=== PATIENT | male | born 1950 | race Caucasian/White ===

== ENCOUNTER → 2016-08-10 | Outpatient (CLI) | payer BC ==
[~2016-08-10] MED LIST: ESCI1TAB6 PO; IBUP-103 PO; LISI-461 PO; LXP/20 PO; VNTHFA/IN INH; albuterol inhaler INH
--- NOTE | 2016-08-10 11:45 | DIAGNOSTIC IMAGING REPORT ---
THYROID ULTRASOUND HISTORY: Nodule TRACH IAL NODULE COMPARISON: None. FINDINGS: Right lobe: Maximum dimension 3.8 cm. Uniform echogenicity Left lobe: Maximum dimension 4.2 cm. Uniform echogenicity Isthmus: No nodules. IMPRESSION: Normal thyroid ultrasound. Electronically signed by: Khurram Leggett M.D. 08/10/2016 11:43 AM Dictated Date/Time: 08/10/2016 11:38 AM
== END | disposition home or self-care (01) ==
LOC: C.ULTRBC 11:09
PROVIDERS: ATTEND Family Medicine
DX: J98.8 Other specified respiratory disorders (principal)

== ENCOUNTER → 2016-08-29 | Outpatient (CLI) | payer BC ==
[2016-08-29 11:03] LABS: BASO % 0.3 %; BASO ABS # 0.02 K/uL (0-0.2); COMPLETE YES; EOS % 0.4 %; HEMATOCRIT 42.8 % (42-52); IG% 0.1 %; LYMPH % 29.3 %; MEAN CELL VOLUME 82.8 fL (80-100); MEAN PLATELET VOLUME 9.4 fL (7.4-10.4); MONO % 9.3 %; NEUT % 60.6 %; PLATELET COUNT 311 K/uL (130-400); RED BLOOD COUNT 5.17 M/uL (4.7-6.1); WHITE BLOOD COUNT 7.17 K/uL (4.8-10.8)
[2016-08-29 11:17] LABS: INR 1.1 (0.9-1.1); PARTIAL THROMBOPLASTIN RATIO 1.3; PROTHROMBIN TIME (PATIENT) 11.6 SECONDS (9.0-12.0)
[2016-08-29 11:31] LABS: ALT/SGPT 22 U/L (12-78); AST/SGOT 21 U/L (15-37); BLOOD UREA NITROGEN 26 mg/dl (7-18); BUN/CREATININE RATIO 26.7 (10-20); CALCIUM 9.2 mg/dl (8.5-10.1); CARBON DIOXIDE 28 mmol/L (21-32); CHLORIDE 99 mmol/L (98-107); CREATININE 0.99 mg/dl (0.60-1.40); GLUCOSE 104 mg/dl (70-99); POTASSIUM 3.9 mmol/L (3.5-5.1); SODIUM 132 mmol/L (136-145)
[2016-08-29 11:43] LABS: ALB/GLOB RATIO 0.9 (0.9-2); ALKALINE PHOSPHATASE 80 U/L (45-117); IMMUNOGLOBULN M 84.2 mg/dL (40-230); TOTAL IRON BINDING CAPACITY 277 mcg/dl (250-450)
--- NOTE | 2016-09-03 09:35 | CODING QUERY MEDICAL NECESSITY ---
SUPPORTING DIAGNOSIS NEEDED Vegas RAVI, A supporting diagnosis is required for the test/procedure performed on this patient in order for us to be reimbursed by the patient's insurance. Please provide a supporting diagnosis for the following test/procedure listed below next to the test name along with your signature. *If there is no additional diagnosis for this patient that would support the following test/procedure please document that below next to the test/procedure. Test(s)/Procedure(s) that require a supporting diagnosis: * ([id number]) IMMUNOGLOBULIN E DIAGNOSIS: DATE OF SERVICE: 08/29/16 Provider Signature: Date: Thank you Jonh Pena [facility] [place] Information Management Once completed, please kindly fax back to [phone] For questions please call [phone]
== END | disposition home or self-care (01) ==
LOC: C.LAB 10:01
PROVIDERS: ATTEND Internal Medicine Pulmonary Disease
DX: J98.8 Other specified respiratory disorders (principal); J44.9 Chronic obstructive pulmonary disease, unspecified; R73.03 Prediabetes; Z79.899 Other long term (current) drug therapy; I10 Essential (primary) hypertension; E78.5 Hyperlipidemia, unspecified; R53.83 Other fatigue; F17.200 Nicotine dependence, unspecified, uncomplicated; E22.2 Syndrome of inappropriate secretion of antidiuretic hormone

== ENCOUNTER → 2016-09-03 | Outpatient (CLI) | payer BC ==
--- NOTE | 2016-09-03 15:53 | DIAGNOSTIC IMAGING REPORT ---
PET/CT HISTORY: MALIGNANT NEOPLASM TECHNIQUE: PET/CT was performed from the base of the skull through the pelvis following the intravenous administration of 12.2 mCi of F18-FDG. Non-contrast CT imaging was performed over the same range without breath-hold for attenuation correction of PET images and anatomic correlation, but not for primary interpretation as it is not of standard diagnostic quality. CT DOSE: COMPARISON: Outside hospital chest CT 08/03/2016. Abdomen and pelvis CT 11/28/2006. FINDINGS: HEAD AND NECK: There is no FDG-avid disease or significant lymphadenopathy in the imaged portions of the head and the neck. Symmetric FDG uptake within the brain. Diffuse mild FDG uptake within the soft palate and salivary glands is likely physiologic. CHEST: There is no FDG-avid disease in the chest. There is no axillary, mediastinal, or hilar lymphadenopathy. There is no pleural or pericardial effusion. There is no air-space disease. Linear density within the upper trachea likely represent mucous. Otherwise, the central airways are patent. Stable 4 mm nodule within the superior segment of the right lower lobe on image 124. This does not demonstrate abnormal FDG uptake but is likely below the threshold for PET imaging. ABDOMEN/PELVIS: Below the diaphragm, tracer is distributed physiologically in the gastrointestinal and genitourinary tracts. There is no significant lymphadenopathy and no FDG-avid disease. MUSCULOSKELETAL: There is no FDG-avid or destructive bone lesion. IMPRESSION: 1. No FDG avid disease. 2. A stable 4 mm nodule within the right lower lobe. This does not demonstrate abnormal FDG uptake but is likely below the threshold for PET imaging. Continued chest CT follow up is recommended to ensure stability. Electronically signed by: Tomi Bourgeois M.D. 09/03/2016 4:17 PM Dictated Date/Time: 09/03/2016 11:49 AM
== END ==
LOC: C.PET 07:22
PROVIDERS: ATTEND Internal Medicine Pulmonary Disease
DX: C80.1 Malignant (primary) neoplasm, unspecified (principal)

== ENCOUNTER 2016-09-11 07:22 | Day surgery (SDC) | payer BC ==
--- NOTE | 2016-09-10 19:30 | History and Physical ---
History & Physical Date Sep 10, 2016. Chief Complaint Abnormal CT scan with tracheal mucosa/mucous plug versus mass History of Present Illness The patient is a 65 year old male with complaints of abnormal CT scan 65-year-old male who initially presented to the [facility] for follow-up on abnormal CT scan. PET scan was obtained notably within normal limits but there continue to be a 4 millimeter nodule which is being follow-up. The CT scan did show an abnormal tracheal mucus plug verses lesion. And as the patient is high risk for primary lung carcinoma he is here for bronchoscopy and evaluation of the trachea and main stem bronchi bilaterally. Past Medical/Surgical History Medical Problems: (1) Benign hypertension (2) thyroid issues Additional History Hepatic Disease: No Endocrine Disorder: No Kidney Disease: No Hypertension: Yes Heart Disease: No Bleeding Tendencies: No Infectious Diseases: No Allergies Coded Allergies: Cheese (Verified Allergy, Unknown, MIGRAINES, 12/23/15) [place] (Verified Adverse Reaction, Severe, MIGRAINES, 12/23/15) NUTS (Verified Adverse Reaction, Severe, MIGRAINES, 12/23/15) Tomato (Verified Adverse Reaction, Severe, MIGRAINES, 12/23/15) Delta Oil (Verified Adverse Reaction, Unknown, MIGRAINES, 12/23/15) Uncoded Allergies: LEGUMES (Adverse Reaction, Unknown, MIGRIANES, 12/23/15) Home Medications Scheduled Escitalopram Oxalate (Lexapro), 20 MG PO DAILY Lisinopril (Zestril), 20 MG PO BID Physical Examination Skin: warm/dry, no rash Eyes: normal inspection, EOMI, sclerae normal ENT: normal ENT inspection, pharynx normal Head: normocephalic, atraumatic Neck: supple, no adenopathy, trachea midline Respiratory/Chest: lungs clear, normal breath sounds, no respiratory distress Cardiovascular: regular rate, rhythm, no edema, no murmur Abdomen / GI: normal bowel sounds, non tender Back: normal inspection Extremities: normal inspection, normal range of motion Neurologic/Psych: no motor/sensory deficits, alert, normal reflexes, oriented x [address] scan with tracheal mucus plugging versus mass ASA Classification: ASA Class II Plan of Treatment Bronchoscopy with conscious sedation and bronchial alveolar lavage for evaluation
[~2016-09-11] VITALS: Ht 167.6 cm; Wt 50.0 kg
[2016-09-11] VITALS (15 sets, daily range): BP systolic 159–196; BP diastolic 85–120; PULSE 46–63; TEMP 36.4–37.1; O2SAT 93–100; Ht 167.6 cm; Wt 50.0 kg
[~2016-09-11 07:22] MED LIST changes: -IBUP-103 PO; -LISI-461 PO; -LXP/20 PO; -VNTHFA/IN INH; -albuterol inhaler INH
[2016-09-11] MEDS ORDERED: LIDOCAINE HCL 2% LOCAL 50ML VIAL INFIL ONE (07:23)
[2016-09-11] MEDS ORDERED: LIDOCAINE 4% W/AFRIN NASAL SOLN 4ML ONE (07:23)
[2016-09-11] MEDS ORDERED: FENTANYL CITRATE INJ 50 MCG/1 ML 2 ML VIAL IV ONE (07:23)
[2016-09-11] MEDS ORDERED: MIDAZOLAM HCL 5 MG/ML 1 ML VIAL IV ONE (07:23)
--- NOTE | 2016-09-11 08:41 | Procedure Note ---
Pre-Mod Sedation Assessment General Date of Moderate Sedation: Sep 11, 2016. Review Cardiovascular: regular rate, rhythm, no edema, no gallop, no JVD, no murmur, normal peripheral pulses Abdomen: normal bowel sounds, non tender, soft, no organomegaly, no pulsatile mass, normal rectal exam, occult blood negative Lungs: chest non-tender, lungs clear, normal breath sounds, no respiratory distress, no accessory muscle use Airway Class: II Pre-Sedation Airway Assessment Oral Cavity: Dentures, WNL Short Thick Neck: No Hx of Sleep Apnea: No Smoking Status: Current Every Day Smoker Mallampati Classification: Class IV Procedure Planning Contraindications-for Mod Sed: None Yes Notes The planned sedation has been discussed with the patient and consent obtained. I have identified the patient, determined the appropriateness of sedation and have assessed the patient immediately prior to the procedure. All medicine(s) and interventions are by my order.
--- NOTE | 2016-09-11 08:41 | History & Physical Bridge Note ---
H&P Re-Evaluation Bridge Note: I have examined the patient, reviewed the History & Physical and in the interval since the performance of the History & Physical I have noted the following changes of clinical significance: No changes noted
[2016-09-11] MEDS ORDERED: albuterol inhaler INH (08:42)
[2016-09-11] MEDS ORDERED: D5W AND NSS 1,000 ML IV SCH (08:45)
[2016-09-11] MEDS ORDERED: MIDAZOLAM HCL 5 MG/ML 1 ML VIAL IV SCH (09:40)
[2016-09-11] MEDS ORDERED: FENTANYL CITRATE INJ 50 MCG/1 ML 2 ML VIAL IV SCH (09:40)
[2016-09-11] MEDS ORDERED: NURSING VERBAL MED ORDER ONE (09:45)
--- NOTE | 2016-09-11 09:50 | Procedure Note ---
Post-Moderate Sedation Plan General Date of Moderate Sedation Sep 11, 2016. Vital Signs: Vital Signs Past 12 Hours Date Time Temp Pulse Resp B/P Pulse Ox O2 Delivery O2 Flow Rate FiO2 09/11/16 09:40 54 21 180/114 94 Mask 6.0 09/11/16 09:35 63 22 167/110 94 Mask 6.0 09/11/16 09:30 59 22 168/120 93 Mask 6.0 09/11/16 09:25 51 22 166/97 95 Mask 09/11/16 09:20 51 22 160/98 99 Mask 09/11/16 09:10 47 21 183/105 100 Room Air Mask 09/11/16 09:08 52 20 160/95 98 Room Air Mask 09/11/16 09:08 36.4 51 20 183/104 98 Room Air 09/11/16 08:44 Room Air 09/11/16 08:17 36.4 51 20 192/95 98 Room Air 183/104 Review - Discharge Plan Post Moderate Sedation Plan: On clinical assessment, the patient appears to have tolerated the conscious sedation without complications. Patient is recovering as anticipated. Patient will continue to be monitored by nursing and may be discharged when conscious sedation discharge criteria are met.
--- NOTE | 2016-09-11 09:55 | Bronchoscopy Procedure Note ---
Bronchoscopy Procedure Note Procedure: Bronchoscopy, bronchoalveolar lavage the right middle lobe, conscious sedation Consent: Obtained to the patient placed in the chart Preprocedural diagnosis: Tracheal mass Postprocedural diagnosis: Diffuse mucous plugs Start time: Zero 925 In time: Zero 933 Analgesia: 2% lidocaine: Via nebulizer 4% gel lidocaine: Via right naris 2% atomized lidocaine: Via atomizer 2% liquid lidocaine: Via bronchoscopy Sedation: Versed IV: 2 mg Fentanyl IV: 50 g Procedure: The Olympus video bronchoscope was used for this procedure initially passed out through the oropharynx retroflex off the soft palate and then passed out through the right naris. Posterior naris: Bilateral erythema with notable edema of the nasal turbinates Posterior oropharynx: Mild erythema with cobblestoning Right naris/periglottic glottis: Anatomically within normal limits Glottis: Anatomically within normal limits Vocal cords: Proper abduction and abduction, anatomically within normal limits Subglottis/trachea/Porsche: Diffuse mucous plugs easily cleared, anatomically within normal limits Right bronchial tree: Right mainstem bronchus: Anatomically within normal limits Right upper lobe: Anatomically within normal limits Bronchus intermedius: Anatomically within normal limits Right middle lobe: Anatomically within normal limits Right lower lobe: Anatomically within normal limits Findings: Mild and easily removed diffuse mucous plugs in all lobes Left bronchial tree: Left mainstem bronchus: Anatomically within normal limits Left upper lobe: Anatomically within normal limits Lingula: Anatomically within normal limits Left lower lobe: Anatomically within normal limits Findings: Diffuse mucous plugs greatest in the left upper lobe lingula easily cleared Bronchial lavage: 80 cc lavage performed of the right middle lobe with 40 cc were returned Complications: None Follow-up: Patient will return to [facility] monitored in then discharged
--- NOTE | 2016-09-11 09:57 | Discharge Instructions ---
Discharge Instructions Date of Service Sep 11, 2016. Admission Reason for Admission: Tracheal Nodule Discharge Discharge Diagnosis / Problem: diffuse mucous secretions of the aortic globally and notable rhinitis Discharge Goals Goal(s): Diagnostic testing Activity Recommendations Activity Limitations: resume your previous activity . Instructions / Follow-Up Instructions / Follow-Up Follow-up with provider Zhen [place] of the pulmonary clinic Current Hospital Diet Patient's current hospital diet: Discharge Diet Recommended Diet: Regular Diet Pending Studies Studies pending at discharge: yes List of pending studies: Microbiologic and bilateral analysis of the bronchial washing of the right middle lobe Medical Emergencies . Who to Call and When: Medical Emergencies: If at any time you feel your situation is an emergency, please call 911 immediately. . Non-Emergent Contact Non-Emergency issues call your: Certified Nurses' Aide Call Non-Emergent contact if: temperature is above 101.5 . . "Provider Documentation" section prepared by Angel Luis Ly. VTE Core Measure Inpt VTE Proph given/why not?: Treatment not indicated
[2016-10-05 20:54] LABS: HERPES SIMPLEX CULT SOURCE OTHER-RIGHT MIDDLE L; HERPES SIMPLEX VIRUS CULT NOT ISOLATED (NOT ISOLATED)
[2017-02-26] MEDS ORDERED: IBUP-103 PO (08:44)
== END 2016-09-11 12:15 | disposition home or self-care (01) ==
LOC: C.ACU 07:22
PROVIDERS: ATTEND Internal Medicine Critical Care Medicine
DX: J39.8 Other specified diseases of upper respiratory tract (principal); J98.09 Other diseases of bronchus, not elsewhere classified; I10 Essential (primary) hypertension; Z91.018 Allergy to other foods

== ENCOUNTER → 2016-09-13 | Outpatient (CLI) | payer BC ==
[~2016-09-13] MED LIST changes: +IBUP-103 PO; +LISI-461 PO; +LXP/20 PO; +VNTHFA/IN INH; +albuterol inhaler INH
[2016-09-13 14:18] LABS: ESTIMATED AVERAGE GLUCOSE 123 mg/dl; HA1C FLAG Normal (Normal)
[2016-09-13 15:06] LABS: URINE APPEARANCE CLEAR (CLEAR); URINE BILIRUBIN NEG (NEG); URINE COLOR YELLOW; URINE EPITHELIAL CELL AUTO 0-5 /lpf (0-5); URINE NITRITE NEG (NEG); URINE SPECIFIC GRAVITY 1.011 (1.000-1.030); UROBILINOGEN NEG (NEG)
[2016-09-13 15:16] LABS: MANUAL MICROSCOPIC REQUIRED? NO; REVIEW REQ? NO
--- NOTE | 2016-09-18 11:21 | CODING QUERY MEDICAL NECESSITY ---
SUPPORTING DIAGNOSIS NEEDED A supporting diagnosis is required for the test/procedure performed on this patient in order for us to be reimbursed by the patient's insurance. Please provide a supporting diagnosis for the following test/procedure listed below next to the test name along with your signature. *If there is no additional diagnosis for this patient that would support the following test/procedure please document that below next to the test/procedure. Test(s)/Procedure(s) that require a supporting diagnosis: * GLYCATED HEMOGLOBIN DIAGNOSIS: * DOS: 09/13/16 Provider Signature: Date: Thank you [facility] Information Management Once completed, please kindly fax back to [phone] For questions please call [phone]
== END | disposition home or self-care (01) ==
LOC: C.LAB 12:20
PROVIDERS: ATTEND Family Medicine
DX: Z12.5 Encounter for screening for malignant neoplasm of prostate (principal); R53.83 Other fatigue; R73.03 Prediabetes

== ENCOUNTER → 2016-11-05 | Outpatient (CLI) | payer BC | END | disposition home or self-care (01) | LOC: C.LAB 10:52 | PROVIDERS: ATTEND Family Medicine | DX: R31.29 Other microscopic hematuria (principal) ==

== ENCOUNTER → 2017-01-06 | Outpatient (CLI) | payer BC ==
--- NOTE | 2017-01-07 05:28 | PAP/PSG TECHNICIAN REPORT ---
[facility] [employer] Box Rental Clerk Polysomnogram Report Study name: None Report date: 01/07/2017 Study date: 01/06/2017 Referring Physician: Rena Stiles PA-C Name: WILLIAN GILLIAM Interpreting Physician: Dar Augustine M.D. Date of : 1950 Safe Dep[employer] Box Rental Clerk: Parish Guthrie RPSGT. Sex: Male Age: 66 StudyType: PSG PAP Weight: 122 lbs Height: 66 years, Height 5' 7" BMI: 19.11 Medications: ESCITALOPRAM OXALATE 20 MG, LISINOPRIL 10 MG, VENTOLIN HFA 108 (90) BASE Patient History PATIENT HAD A HOME SLEEP STUDY IN AUGUST AND WAS POSITIVE FOR MO[place]STO WITH AN AHI OF 32.9/HR. HE WAS GIVEN A AUTO-CPAP BUT HAS BEEN STRUGGLING TO TOLERATE IT. HE HAS CHANGED DIFFERENT MASKS BUT STILL HAS TROUBLE WITH A MASK LEAK AND FELT THE CPAP ISNT HELPING HIM. HE IS TODAY FOR BIPAP TITRATION. ESS = 3 Parameters Monitored NPSG: E1-M2, E2-M1, Fp1-M2, Fp2-M1, F3-M2, F4-M2, F4-M1, C3-M2, C4-M2, C4-M1, O1-M2, O2-M2, O2-M1, T3-M2, T4-M1, P3-M2, P4-M1, CHIN1, CHIN2, HR, EKG, Legs, PFLOW, SNOR, FLOW, CFLOW, Tidal Volume, THOR, ABDO, SpO2, PLTH, CPRESS, ETCO2 Wave, ETCO2, pH Sleep Architecture Sleep Stages Time at Lights Off 9:34:17 PM STAGES Time (min.) TST (%) Time at Lights On 4:58:47 AM Wake 138.5 -- Total Recording Time (TRT) 445.00 min. N1 17.0 6 Total Sleep Period (TSP) 346.5 min. N2 165.0 54 Total Sleep Time (TST) 306.0min. N3 44.5 15 Awake Time 139.0 min. REM 79.5 26 Wake after Sleep Onset 47.5 min. Sleep Efficiency (SE) 69 % Sleep Onset Latency (ANNAMARIA) 91.0 min. Number of Stage 1 Shifts None Awakenings 15 Stage Changes 56 Number of REM periods 3 REM 79.5 26 REM Latency 170.0 min. NREM 226.5 74 Body Position Analysis Supine Right Left Side Prone Vertical Total Sleep Time (min.) 9.5 38.5 263.1 301.57 0.0 0.0 Total Sleep Time (%) 1% 13% 86% 99 0% N/A% Total Sleep Time REM (min.) 0.0 35.5 44.0 None 0.0 0.0 Total Sleep Time NREM (min.) 4.4 3.0 219.1 None 0.0 0.0 Intermittent Wake (min.) 5.0 19.1 114.3 None 0.0 0.0 Total Sleep Period (%) 2% None None None None None Arousals Myoclonus (PLM) * Events Count Index Events Count Index Spontaneous 21 4 Events Awake (PLMW) 82 35.5 Respiratory 14 2.5 Events Asleep w/ Arousal (PLMA) 4 0.8 PLM 4 1 Events Asleep w/o Arousal (PLMS) 97 19.0 Snoring 13 3 Total Asleep 101 19.8 Total 49 10 Total 183 25 Respiratory Analysis * CA OA MA CH H RERA Total Count 9 1 4 0 13 8 27 Index 1.8 0.2 0.8 0 2.5 2 6.9 Mean Duration 29.9 12.9 51.7 0.00 32.5 19.3 30.4 Longest Duration 44.3 12.9 63.2 0.00 63.2 24.7 63.5 Respiratory Event Summary Total Supine ~Supine Right Left Prone REM NREM Apneas Count 14 2 12 8 4 N/A 7 7 Index 2.7 27 2 12.5 0.9 N/A 5 2 Hypopneas (4% Desat) Count 13 1 12 6 6 N/A 6 7 Index 2.5 13.6 2 9.4 1.4 N/A 4.5 1.9 Apneas & All Hypopneas Count 27 3 24 14 10 N/A 13 14 Index 5.3 41 5 22 2 N/A 9.8 3.7 Respiratory Events (Retail Shift Supervisor+All Hyp+RERA) Count 27 3 32 18 14 N/A 13 14 Index 6.9 41 6 28.1 3.2 N/A 12.8 4.8 Respiratory Related Arousal Count 14 3 12 6 6 N/A 6 7 Index 2.5 14 2 9 1 N/A 5 2 Snoring Analysis Supine Right Left Prone REM NREM Total Snore duration 8.5 min Snores count 3 126 286 N/A 125 290 415 Snore mean duration 1.2 Sec Snores index 41 196 65 N/A 94.3 76.8 81.4 TST with snoring (%) 2.8% Desaturation Event Summary: Minimum %SpO2 Event Count Mean/Min/Max Duration(sec.) Desaturation Index % Time In Bed > 90 25 48.9 / 10.0 / 87.0 3.6 98.8 86 - 90 1 50.7 / 50.7 / 50.7 12.1 1.2 81 - 85 0 N/A 0.0 0.0 76 - 80 0 N/A 0.0 0.0 71 - 75 0 N/A 0.0 0.0 66 - 70 0 N/A 0.0 0.0 61 - 65 0 N/A 0.0 0.0 56 - 60 0 N/A 0.0 0.0 51 - 55 0 N/A 0.0 0.0 < 50 0 N/A 0.0 0.0 Total REM NREM Awake <50% 0.0 min. 0.0 min. 0.0 min. 0.0 min. 51 - 60% 0.0 min. 0.0 min. 0.0 min. 0.0 min. 61 - 70% 0.0 min. 0.0 min. 0.0 min. 0.0 min. 71 - 80% 0.0 min. 0.0 min. 0.0 min. 0.0 min. 81 - 90% 5.1 min. 4.0 min. 0.4 min. 0.7 min. 91 - 100% 417.5 min. 75.5 min. 226.1 min. 115.9 min. Average 94 94 93 97 Minimum SpO2 82 86 90 82 Desaturation Event Index 3.5 9.8 3.2 0.4 # Desat. Events below 89% 4 4 N/A N/A Time(%) with Saturation below 89% 0.3 0.3 0.0 0.0 Time(min.) with Saturation below 89% 1.4 1.2 0.0 0.2 Time (mins) REM (mins) NREM (mins) % of TST SpO2 Below 90% 10 7 N3 0.7 SpO2 Below 88% 5 0 0 0 Heart Rate Analysis Min (bpm) Max (bpm) Average (bpm) Awake 49 127 60 NREM 50 72 56 REM 51 71 57 Overall 50 72 56 Supplemental O2 Values Minimum O2 level: None Value Start Time End Time [employer] Rental Clerk Comments Mr. Gilliam slept in the right, left and supine positions. No cardiac arrhythmia noted. Leg movements noted. No bruxism noted. PAP initiated at an IPAP of +8 CMH2O and an EPAP of +4 CMH2O up-titrated to an optimal level of: IPAP +17 CMH2O, EPAP + 7 CMH20 with a rate of 16 BPM, which nearly eliminated all respiratory events and snoring. A Resmed Mirage Quattro full face size large mask was used during titration Mr. Gilliam awoke to use the restroom 2 times during the night. Mr. Gilliam stated I slept as well as I do when I am in my own bed. I added a rate of 14 around 1:58 am due to continued central and mix apnea events. I later increased the rate to 16. FINAL PRESSURE SETTIN/7 with a rate of 16. The patient brought in his own mask and I had him put it on himself. While the patient was wearing the mask, I tested the leak and it was running in the 80's. I asked him if this is how he always puts it on and if this is how it always feels and he said yes. I offered a different mask for him to wear that would have a tolerable leak. Though, with the Quattro full face the leak was slightly high due to the patient's thick facial hair. He said he's willing to shave it off if the mask will work better. The final report will be interpreted and signed by a sleep physician. The completed physician report will then be placed in the patient medical record. Therapy Event: Therapy (cm H20) 01/18/03/20 12 146 29/11 31/12 Total Time at Pressure (min.) 109.5 15.1 9.8 15.5 127.3 5.1 11.0 151.2 TST at Pressure (min.) 18.5 14.6 9.8 15.5 121.3 5.1 11.0 110.2 # Periods 1 1 1 1 1 1 1 1 Sleep Onset (min.) 91.0 0.0 0.0 0.0 0.0 0.0 0.0 0.0 REM Onset (min.) N/A N/A N/A N/A 111.2 0.0 0.0 0.0 Sleep Efficiency % 16 96 100 100 95 100 100 72 Wakefulness (%) 83.1 3.3 0.0 0.0 4.7 0.0 0.0 27.1 Wakefulness (min.) 91.0 0.5 0.0 0.0 6.0 0.0 0.0 41.0 NREM 1 (%) 2.7 0.0 0.0 0.0 5.9 0.0 0.0 4.3 NREM 1 (min.) 3.0 0.0 0.0 0.0 7.5 0.0 0.0 6.5 NREM 2 (%) 14.1 96.7 100.0 90.3 68.1 0.0 0.0 16.2 NREM 2 (min.) 15.5 14.6 9.8 14.0 86.7 0.0 0.0 24.5 NREM 3 (%) 0.0 0.0 0.0 9.7 8.6 0.0 0.0 21.2 NREM 3 (min.) 0.0 0.0 0.0 1.5 11.0 0.0 0.0 32.0 REM (%) 0.0 0.0 0.0 0.0 12.7 100.0 100.0 31.2 REM (min.) 0.0 0.0 0.0 0.0 16.2 5.1 11.0 47.2 # Arousals 5 4 3 5 18 0 4 10 Arousal Index 16.3 16.4 18.3 19.4 8.9 0.0 21.7 5.4 # Snore 71 87 27 45 94 37 30 24 Snore Index 230.8 357.5 165.0 174.7 46.5 432.9 163.1 13.1 AHI 0.0 4.1 12.2 15.5 8.9 11.7 0.0 0.5 AHI Supine N/A N/A N/A N/A 50.2 N/A N/A 29.4 AHI Non-Supine 0.0 4.1 12.2 15.5 8.1 11.7 0.0 0.0 NREM AHI 0.0 4.1 12.2 15.5 3.4 N/A N/A 1.0 REM AHI N/A N/A N/A N/A 44.5 11.7 0.0 0.0 RDI 0.0 12.3 18.3 19.4 8.9 11.7 21.7 0.5 # Obstructive 0 0 0 1 0 0 0 0 # Central Ap 0 0 0 0 9 0 0 0 # Mixed 0 0 0 0 4 0 0 0 # Hypopneas 0 1 2 3 5 1 0 1 RERAS 0 2 1 1 0 0 4 0 Total Respiratory Events 0 3 3 5 18 1 4 1 Time Below SpO2 89.00% (min.) 0.0 0.0 0.0 0.0 0.8 0.4 0.0 0.0 Mean NREM SpO2 (%) 94 95 95 94 94 N/A N/A 92 Mean REM SpO2 (%) N/A N/A N/A N/A 93 92 93 94 Mean Sleep SpO2 (%) 94 95 95 94 94 92 93 93 Min NREM SpO2 (%) 92 91 91 90 90 N/A N/A 90 Min REM SpO2 (%) N/A N/A N/A N/A 86 87 89 92 Position Supine (min.) 0.0 0.0 0.0 0.0 2.4 0.0 0.0 2.0 Position Non-supine (min.) 18.5 14.6 9.8 15.5 118.9 5.1 11.0 108.1 LM Index Sleep 0.0 0.0 0.0 0.0 0.0 0.0 0.0 55.0 LM Index NREM 0.0 0.0 0.0 0.0 0.0 N/A N/A 77.1 LM Index REM N/A N/A N/A N/A 0.0 0.0 0.0 25.4 Mean Heart Rate (bpm) 57 59 58 58 56 59 60 54 Min Heart Rate (bpm) 52 54 54 54 51 54 55 50
--- NOTE | 2017-01-08 14:20 | POLYSOMNOGRAPH REPORT ---
CLINICAL DATA: A 66-year-old male with BMI of 19.1 referred by Rena Stiles for a BiPAP titration study. The patient has severe sleep apnea diagnosed with a sleep study which showed an AHI of 32.9. He has been on auto CPAP, but is having a difficult time tolerating it. He has changed masks but does not feel like it is helping. He was sent for a BiPAP titration study. SLEEP ARCHITECTURE: Total recording time was 445 minutes. Total sleep period was 346.5 minutes. Total sleep time was 306 minutes divided between 226.5 minutes of non-REM sleep and 79.5 minutes of REM sleep. Sleep onset latency was delayed at 91 minutes. REM latency was delayed at 170 minutes. Sleep efficiency was reduced at 69%. Wake after sleep onset was 47.5 minutes. Sleep consisted of stage N1 6%, N2 54%, N3 15% and REM 26%. AROUSAL DATA: 49 arousals were recorded for an index of 10 per hour. PLM DATA: Mildly elevated limb movements during sleep were noted. There were 101 limb movements during sleep noted for an index of 19.8 per hour with arousal index of 0.8 per hour. RESPIRATORY DATA: The AHI was 5.3. There were 9 central, 1 obstructive, and 4 mixed apneic episodes. The longest apneic episode was 63.2 seconds. There were 13 hypopneas longest duration of which was 63.2 seconds. OXIMETRY DATA: Mild nocturnal hypoxemia was seen. Oxygen cathleen was 86% during REM. The mean saturation was 94%. Time below 88% was 5 minutes. EKG: Heart rates ranged from 50-72 beats per minute. No arrhythmias are noted. CHEMICAL WORKER'S COMMENTS AND TREATMENT SUMMARY: The patient slept in right, left, and supine positions. He used a ResMed Mirage Quattro full face size large mask. He was started on BIPAP 8/4 and eventually was titrated up to a final pressure setting of BiPAP 17/7 with a backup rate of 16. A backup rate was started at 1:58 a.m. because of central and mixed apneic episodes. At his final pressure setting of BiPAP 17/7, backup rate of 16, he slept for 110 minutes with an AHI of 0.5. IMPRESSION: Severe sleep apnea corrected with BiPAP 17/7, backup rate of 16 with residual AHI of 0.5. RECOMMENDATIONS: The patient could be changed to BIPAP at the above noted settings and seen back in followup within 90 days to document efficacy and compliance. MTDD
== END | disposition home or self-care (01) ==
LOC: C.NEUR 20:00
PROVIDERS: ATTEND Physician Assistant
DX: G47.33 Obstructive sleep apnea (adult) (pediatric) (principal)

== ENCOUNTER 2017-02-26 16:18 | Emergency (ER) | payer BC ==
[~2017-02-26] VITALS: Ht 170.2 cm; Wt 54.7 kg
[~2017-02-26 16:18] MED LIST changes: -LISI-461 PO; -LXP/20 PO; -VNTHFA/IN INH
[2017-02-26] MEDS ORDERED: LISI-461 PO (16:28)
[2017-02-26 16:30] VITALS: TEMP 36.6; Ht 170.2 cm; Wt 54.7 kg
[2017-02-26 17:38] VITALS: O2SAT 98
[2017-02-26] MEDS ORDERED: VNTHFA/IN INH (17:51)
[2017-02-26] MEDS ORDERED: LXP/20 PO (17:51)
[2017-02-26 17:59] LABS: BASO % 0.3 %; BASO ABS # 0.02 K/uL (0-0.2); COMPLETE YES; EOS % 0.8 %; HEMATOCRIT 41.2 % (42-52); IG% 0.2 %; LYMPH % 32.1 %; LYMPH ABS # 2.01 K/uL (1.2-3.4); MEAN CELL VOLUME 84.4 fL (80-100); MEAN CORPUSCULAR HEMOGLOBIN 28.5 pg (25-34); MEAN CORPUSCULAR HGB CONC 33.7 g/dl (32-36); MEAN PLATELET VOLUME 9.1 fL (7.4-10.4); NEUT % 56.6 %; PLATELET COUNT 262 K/uL (130-400); RED BLOOD COUNT 4.88 M/uL (4.7-6.1); WHITE BLOOD COUNT 6.27 K/uL (4.8-10.8)
--- NOTE | 2017-02-26 18:02 | EMERGENCY ROOM VISIT NOTE ---
History Report prepared by Shireenibe: Yeny Ponce Under the Supervision of: Dr. Abisai Morgan M.D. First contact with patient: 17:07 Chief Complaint: ILLNESS Stated Complaint: WEAKNESS, CONFUSION History of Present Illness The patient is a 66 year old male who presents to the Emergency Room with complaints of worsening and fatigue beginning 4 days ago. Per , it is not abnormal for the patient to not be aware of the date. The patient states that he has increased fatigue over the past three years but the past 4 days have been more than normal. The of the patient's main concern is that his processing has been slower than normal. He notes some weakness but denies any dizziness, shortness of breath, chest pain, fever, or chills. The patient has a history of TIAs, hypoglycemia, COPD, and a hole in his heart. He is not on any blood thinners. Source of History: patient Onset: 4 days ago Position: other (generalized) Timing: worsening Associated Symptoms: + fatigue, + weakness, No fevers, No chills, No chest pain, No SOB Note: Pt denies dizziness. Review of Systems See HPI for pertinent positives and negatives. A total of ten systems were reviewed and were otherwise negative. Past Medical & Surgical Medical Problems: (1) Benign hypertension (2) thyroid issues Family History Cancer Diabetes mellitus Heart disease Hypertension Kidney disease Lung disease Social History Smoking Status: Current Every Day Smoker Alcohol Use: none Marital Status: Housing Status: lives with family Current/Historical Medications Scheduled Escitalopram Oxalate (Escitalopram Oxalate), 30 MG PO DAILY Lisinopril (Zestril), 20 MG PO BID Scheduled PRN Albuterol Hfa (Ventolin Hfa), 2 PUFFS INH UD PRN for SOB/Wheezing Ibuprofen Tab (Advil), 200 MG PO UD PRN for Pain Allergies Coded Allergies: Cheese (Verified Allergy, Unknown, MIGRAINES, 09/11/16) [place] (Verified Adverse Reaction, Severe, MIGRAINES, 09/11/16) NUTS (Verified Adverse Reaction, Severe, MIGRAINES, 12/23/15) Tomato (Verified Adverse Reaction, Severe, MIGRAINES, 12/23/15) [place] Oil (Verified Adverse Reaction, Mild, migraines, 09/11/16) Uncoded Allergies: LEGUMES (Adverse Reaction, Unknown, MIGRIANES, 12/23/15) Physical Exam Vital Signs Date Time Temp Pulse Resp B/P (MAP) Pulse Ox O2 Delivery O2 Flow Rate FiO2 02/26/17 22:16 57 20 187/99 97 Room Air 02/26/17 22:04 55 20 203/103 96 Room Air 02/26/17 21:59 51 02/26/17 21:28 48 20 224/111 97 Room Air 02/26/17 20:39 49 18 215/116 98 Room Air 02/26/17 19:41 50 20 217/121 99 Room Air 02/26/17 18:42 46 16 175/89 100 Room Air 02/26/17 18:00 51 02/26/17 17:38 98 Room Air 02/26/17 16:30 36.6 56 18 168/105 98 Room Air Physical Exam GENERAL: Awake, alert X2. Cachectic-appearing, in no distress HENT: Normocephalic, atraumatic. Oropharynx unremarkable. Dry MM. EYES: Normal conjunctiva. Sclera non-icteric. NECK: Supple. No nuchal rigidity. FROM. No JVD. RESPIRATORY: Clear to auscultation. CARDIAC: Regular rate, normal rhythm. Extremities warm and well perfused. Pulses equal. ABDOMEN: Soft, non-distended. No tenderness to palpation. No rebound or guarding. No masses. RECTAL: Deferred. MUSCULOSKELETAL: Chest examination reveals no tenderness. The back is symmetrical on inspection without obvious abnormality. There is no CVA tenderness to palpation. No joint edema. LOWER EXTREMITIES: Calves are equal size bilaterally and non-tender. No edema. No discoloration. NEURO: Normal sensorium. No sensory or motor deficits noted. Cerebellar intact including finger to nose. SKIN: No rash or jaundice noted. Medical Decision & Procedures ER Provider Diagnostic Interpretation: Radiology results as stated below per my review and radiologist interpretation: HEAD CT NONCONTRAST Findings: The paranasal sinuses and mastoid air cells are clear. The calvarium and skull base are intact. The ventricles and sulci are within normal limits. There is no mass, hematoma, midline shift, or acute infarct. Impression: No acute intracranial abnormality. Electronically signed by: Tomi Bourgeois M.D. CHEST ONE VIEW PORTABLE FINDINGS: The lungs are clear. Cardiac silhouette is normal in size. No pleural effusions. No pneumothorax. The lungs remain hyperexpanded IMPRESSION: No significant change compared to the prior study. No acute process. Electronically signed by: Tomi Bourgeois M.D. Laboratory Results 02/26/17 17:43 Red Blood Count 4.88, Mean Corpuscular Volume 84.4, Mean Corpuscular Hemoglobin 28.5, Mean Corpuscular Hemoglobin Concent 33.7, Mean Platelet Volume 9.1, Neutrophils (%) (Auto) 56.6, Lymphocytes (%) (Auto) 32.1, Monocytes (%) (Auto) 10.0, Eosinophils (%) (Auto) 0.8, Basophils (%) (Auto) 0.3, Neutrophils # (Auto ) 3.55, Lymphocytes # (Auto) 2.01, Monocytes # (Auto) 0.63, Eosinophils # (Auto ) 0.05, Basophils # (Auto) 0.02 02/26/17 17:43 Test 02/26/17 17:43 02/26/17 19:50 White Blood Count 6.27 K/uL (4.8-10.8) Red Blood Count 4.88 M/uL (4.7-6.1) Hemoglobin 13.9 g/dL (14.0-18.0) Hematocrit 41.2 % (42-52) Mean Corpuscular Volume 84.4 fL (80-100) Mean Corpuscular Hemoglobin 28.5 pg (25-34) Mean Corpuscular Hemoglobin Concent 33.7 g/dl (32-36) Platelet Count 262 K/uL (130-400) Mean Platelet Volume 9.1 fL (7.4-10.4) Neutrophils (%) (Auto) 56.6 % Lymphocytes (%) (Auto) 32.1 % Monocytes (%) (Auto) 10.0 % Eosinophils (%) (Auto) 0.8 % Basophils (%) (Auto) 0.3 % Neutrophils # (Auto) 3.55 K/uL (1.4-6.5) Lymphocytes # (Auto) 2.01 K/uL (1.2-3.4) Monocytes # (Auto) 0.63 K/uL (0.11-0.59) Eosinophils # (Auto) 0.05 K/uL (0-0.5) Basophils # (Auto) 0.02 K/uL (0-0.2) RDW Standard Deviation 52.8 fL (36.4-46.3) RDW Coefficient of Variation 16.9 % (11.5-14.5) Immature Granulocyte % (Auto) 0.2 % Immature Granulocyte # (Auto) 0.01 K/uL (0.00-0.02) Anion Gap 4.0 mmol/L (3-11) Est Creatinine Clear Calc Drug Dose 63.7 ml/min Estimated GFR () 103.5 Estimated GFR (Non- 89.3 BUN/Creatinine Ratio 23.4 (10-20) Calcium Level 8.7 mg/dl (8.5-10.1) Troponin I < 0.015 ng/ml (0-0.045) Thyroid Stimulating Hormone (TSH) 1.220 uIu/ml (0.300-4.500) Urine Color YELLOW Urine Appearance CLEAR (CLEAR) Urine pH 6.0 (4.5-7.5) Urine Specific [place] 1.016 (1.000-1.030) Urine Protein NEG (NEG) Urine Glucose (UA) NEG (NEG) Urine Ketones NEG (NEG) Urine Occult Blood 1+ (NEG) Urine Nitrite NEG (NEG) Urine Bilirubin NEG (NEG) Urine Urobilinogen NEG (NEG) Urine Leukocyte Esterase NEG (NEG) Urine WBC (Auto) 0 /hpf (0-5) Urine RBC (Auto) 0-4 /hpf (0-4) Urine Hyaline Casts (Auto) 0 /lpf (0-5) Urine Epithelial Cells (Auto) 0-5 /lpf (0-5) Urine Bacteria (Auto) NEG (NEG) Laboratory results reviewed by me. Medications Administered Medications (Trade) Dose Ordered Sig/Kan Route Start Time Stop Time Status Last Admin Dose Admin Lisinopril (Zestril Tab) 20 mg NOW STAT PO 02/26/17 20:25 02/26/17 20:26 DC 02/26/17 20:43 20 MG Sodium Chloride 500 ml @ 999 mls/hr Q31M STAT IV 02/26/17 20:46 02/26/17 21:16 DC 02/26/17 20:46 999 MLS/HR Hydralazine HCl (HydrALAZINE INJ) 10 mg NOW STAT IV. 02/26/17 21:35 02/26/17 21:36 DC 02/26/17 21:41 10 MG ECG Indication: weakness Rate (beats per minute): 48 Rhythm: sinus bradycardia Findings: no acute ischemic change, other (normal axis) ED Course 1750: The patient was evaluated in room C11B. A complete history and physical exam was performed. 2024: Lisinopril 20 mg PO. 2027: The patient is asymptomatic and feels back to baseline. Medical Decision I reviewed the patient's past medical history, medications, and the nursing notes as described above. Differential diagnosis: TIA CVA, electrolyte abnormality, pneumonia, dehydration , and UTI. The patient is a 66-year-old gentleman with a past medical history of TIAs, hyponatremia secondary to SIADH who presents emergency Department with generalized confusion and fatigue history of present illness. Arrival of the patient is in no acute distress, to self and place otherwise with mostly resolving confusion per patient and . Patient is afebrile and hypertensive to the 160s 170s but otherwise with stable vital signs. Lab results are unremarkable with WBC within normal limits, sodium 135, UA negative. CT head negative for acute findings. Chest x-ray negative for pneumonia. BUN/ creatinine > 20 adjusting likely prerenal component/dehydration. However considering the patient's history of SIADH patient was given a single 500 mL bolus. Otherwise he is given his home antihypertensive medications, and single dose of hydralazine to help with blood pressure control. Otherwise the patient felt resolution of symptoms and completely back to baseline, and ambulating without difficulty. Findings and plan for follow-up d/w patient. Patient agreeable and d/c'd per discharge instructions. Medication Reconcilliation Current Medication List: was personally reviewed by me Blood Pressure Screening Patient's blood pressure: Elevated blood pressure Impression Primary Impression: Dehydration Scribe Attestation The scribe's documentation has been prepared under my direction and personally reviewed by me in its entirety. I confirm that the note above accurately reflects all work, treatment, procedures, and medical decision making performed by me. Departure Information Dispostion Home / Self-Care Referrals No Doctor, Assigned (PCP) Patient Instructions ED Dehydration, My [facility] Additional Instructions Please follow up with your primary care physician in the next 1-3 days for re- evaluation and to discuss better blood pressure control. You symptoms were likely due to being dehydrated. Otherwise, your exam, EKG, chest xray, and CT scan did not show signs of an emergent condition at this time. Return to the emergency department for worsening symptoms as described in the accompanying instructions.
[2017-02-26 18:17] LABS: BLOOD UREA NITROGEN 20 mg/dl (7-18); BUN/CREATININE RATIO 23.4 (10-20); CALCIUM 8.7 mg/dl (8.5-10.1); CARBON DIOXIDE 29 mmol/L (21-32); CHLORIDE 102 mmol/L (98-107); CREATININE 0.87 mg/dl (0.60-1.40); GLUCOSE 96 mg/dl (70-99); POTASSIUM 3.7 mmol/L (3.5-5.1); SODIUM 135 mmol/L (136-145)
--- NOTE | 2017-02-26 18:52 | DIAGNOSTIC IMAGING REPORT ---
HEAD CT NONCONTRAST CT DOSE: 537.48 mGy.cm HISTORY: Altered mental status. TECHNIQUE: Multiaxial CT images of the head were performed without the use of intravenous contrast. Automated exposure control was utilized for this study. A dose lowering technique was utilized adhering to the principles of ALARA. Comparison: None. Findings: The paranasal sinuses and mastoid air cells are clear. The calvarium and skull base are intact. The ventricles and sulci are within normal limits. There is no mass, hematoma, midline shift, or acute infarct. Impression: No acute intracranial abnormality. Electronically signed by: Tomi Bourgeois M.D. 02/26/2017 6:50 PM Dictated Date/Time: 02/26/2017 6:45 PM
--- NOTE | 2017-02-26 19:30 | DIAGNOSTIC IMAGING REPORT ---
CHEST ONE VIEW PORTABLE HISTORY: Atypical CHEST PAIN COMPARISON: Chest 05/08/2016. FINDINGS: The lungs are clear. Cardiac silhouette is normal in size. No pleural effusions. No pneumothorax. The lungs remain hyperexpanded IMPRESSION: No significant change compared to the prior study. No acute process. Electronically signed by: Tomi Bourgeois M.D. 02/26/2017 7:28 PM Dictated Date/Time: 02/26/2017 7:27 PM
[2017-02-26 20:24] LABS: URINE APPEARANCE CLEAR (CLEAR); URINE BILIRUBIN NEG (NEG); URINE COLOR YELLOW; URINE EPITHELIAL CELL AUTO 0-5 /lpf (0-5); URINE NITRITE NEG (NEG); URINE SPECIFIC GRAVITY 1.016 (1.000-1.030); UROBILINOGEN NEG (NEG); ZZUR CULT IF INDIC CLEAN CATCH NO
[2017-02-26] MEDS ORDERED: LISINOPRIL 20 MG TAB PO STA (20:25)
[2017-02-26 20:26] LABS: MANUAL MICROSCOPIC REQUIRED? NO; REVIEW REQ? NO
[2017-02-26] MEDS ORDERED: SODIUM CHLORIDE 0.9% 1000ML 500 ML IV STA (20:46)
[2017-02-26] MEDS ORDERED: HydrALAZINE HCL 20 MG/ML VIAL IV. STA (21:35)
[2017-02-26 22:16] VITALS: BP 187/99; PULSE 57; O2SAT 97
== END 2017-02-26 22:31 | disposition home or self-care (01) ==
LOC: C.EDB 16:20 → C.EDC 22:31
DX: E86.0 Dehydration (principal); J44.9 Chronic obstructive pulmonary disease, unspecified; I10 Essential (primary) hypertension; Q21.1 Atrial septal defect; E22.2 Syndrome of inappropriate secretion of antidiuretic hormone; F17.200 Nicotine dependence, unspecified, uncomplicated; Z86.73 Personal history of transient ischemic attack (TIA), and cerebral infarction without residual deficits; Z83.3 Family history of diabetes mellitus; Z82.49 Family history of ischemic heart disease and other diseases of the circulatory system; Z79.899 Other long term (current) drug therapy

== ENCOUNTER → 2017-03-14 | Outpatient (CLI) | payer BC ==
[~2017-03-14] MED LIST changes: -ESCI1TAB6 PO; +GADAVIST IV PRN; +LISI-461 PO; +LXP/20 PO; +VNTHFA/IN INH; -albuterol inhaler INH
--- NOTE | 2017-03-14 11:17 | DIAGNOSTIC IMAGING REPORT ---
ORBIT RADIOGRAPHS 3 VIEWS HISTORY: pre-MRI screening. COMPARISON: None. FINDINGS: There are no radiopaque foreign bodies identified within the orbits. IMPRESSION: No radiopaque foreign bodies identified within the orbits. Electronically signed by: Joe Britt M.D. 03/14/2017 11:16 AM Dictated Date/Time: 03/14/2017 11:15 AM
--- NOTE | 2017-03-14 12:08 | DIAGNOSTIC IMAGING REPORT ---
BRAIN COMBO CLINICAL HISTORY: 66 years-old Male presenting with confusion, memory loss, visual issues. TECHNIQUE: Multisequence, multiplanar MR imaging of the brain was performed before and after the administration of intravenous contrast. IV contrast: 5.5 L of Gadavist. COMPARISON: CT head performed on 02/26/2017. FINDINGS: Upper convexity of the pituitary gland is unexpected in a male of this age. Ventricles and sulci normal in size. Periventricular and subcortical white matter T2/FLAIR hyperintensity, nonspecific but likely indicative of chronic small vessel ischemic change. No mass effect or midline shift. No restricted diffusion to suggest acute ischemia. No hemorrhage. No extra-axial fluid collection. T2 skull base flow voids preserved. No abnormal parenchymal enhancement. Bone marrow signal intensity within the calvarium within normal limits. IMPRESSION: 1. Chronic small vessel ischemic change. No acute intracranial abnormality. No abnormal enhancement. 2. Upper convexity of the pituitary gland is unexpected in a male of this age and raises concern for underlying microadenoma. This could be further evaluated with dedicated contrast-enhanced MR of the pituitary gland if clinically indicated. Electronically signed by: Eusebio Galvan M.D. 03/14/2017 12:06 PM Dictated Date/Time: 03/14/2017 12:00 PM
== END | disposition home or self-care (01) ==
LOC: C.MRI 10:39
PROVIDERS: ATTEND Nurse Practitioner
DX: R41.0 Disorientation, unspecified (principal); I67.82 Cerebral ischemia; E23.6 Other disorders of pituitary gland

== ENCOUNTER → 2017-04-08 | Outpatient (CLI) | payer BC ==
[~2017-04-08] MED LIST changes: -GADAVIST IV PRN
[2017-04-08 15:32] LABS: BASO % 0.1 %; BASO ABS # 0.01 K/uL (0-0.2); COMPLETE YES; HEMATOCRIT 40.9 % (42-52); IG% 0.1 %; LYMPH % 35.9 %; LYMPH ABS # 2.57 K/uL (1.2-3.4); MEAN CELL VOLUME 83.1 fL (80-100); MEAN CORPUSCULAR HEMOGLOBIN 28.9 pg (25-34); MEAN CORPUSCULAR HGB CONC 34.7 g/dl (32-36); MEAN PLATELET VOLUME 9.1 fL (7.4-10.4); MONO % 9.5 %; NEUT % 53.4 %; PLATELET COUNT 259 K/uL (130-400); RED BLOOD COUNT 4.92 M/uL (4.7-6.1); WHITE BLOOD COUNT 7.16 K/uL (4.8-10.8)
[2017-04-08 16:09] LABS: ALT/SGPT 24 U/L (12-78); AST/SGOT 23 U/L (15-37); BLOOD UREA NITROGEN 25 mg/dl (7-18); BUN/CREATININE RATIO 28.2 (10-20); CARBON DIOXIDE 25 mmol/L (21-32); CHLORIDE 101 mmol/L (98-107); CREATININE 0.87 mg/dl (0.60-1.40); GLUCOSE 105 mg/dl (70-99); SODIUM 134 mmol/L (136-145)
[2017-04-08 16:20] LABS: ALKALINE PHOSPHATASE 97 U/L (45-117)
--- NOTE | 2017-04-12 11:47 | CODING QUERY MEDICAL NECESSITY ---
SUPPORTING DIAGNOSIS NEEDED A supporting diagnosis is required for the test/procedure performed on this patient in order for us to be reimbursed by the patient's insurance. Please provide a supporting diagnosis for the following test/procedure listed below next to the test name along with your signature. *If there is no additional diagnosis for this patient that would support the following test/procedure please document that below next to the test/procedure. Test(s)/Procedure(s) that require a supporting diagnosis: * VITAMIN B12 DIAGNOSIS: Provider Signature: Date: Thank you Rena Searcy [employer] Once completed, please kindly fax back to [phone] For questions please call [phone]
== END | disposition home or self-care (01) ==
LOC: C.LAB 14:56
PROVIDERS: ATTEND Internal Medicine
DX: I10 Essential (primary) hypertension (principal); Z86.73 Personal history of transient ischemic attack (TIA), and cerebral infarction without residual deficits; E22.2 Syndrome of inappropriate secretion of antidiuretic hormone; R41.0 Disorientation, unspecified; R21 Rash and other nonspecific skin eruption

== ENCOUNTER → 2017-05-07 | Outpatient (CLI) | payer BC ==
[~2017-05-07] MED LIST changes: +GADAVIST IV PRN
--- NOTE | 2017-05-07 09:46 | DIAGNOSTIC IMAGING REPORT ---
MRI OF THE PITUITARY WITHOUT A WITH GADOLINIUM CLINICAL HISTORY: E22.2 SIADH (syndrome of inappropriate ADH production)D35.2 pituitary adenoma abnormal prior MRI the brain COMPARISON STUDY: MRI the brain dated 03/06/2017 FINDINGS: Images were obtained the sagittal axial and coronal planes. Imaging was performed before and after the administration of 5 cc of intravenous Gadavist. The optic chiasm appears normal. The infundibulum is within the midline. The pituitary gland measures 6.3 mm in height. The gland enhances in a uniform fashion. IMPRESSION: No pituitary masses are visualized. Electronically signed by: Joe Britt M.D. 05/07/2017 9:45 AM Dictated Date/Time: 05/07/2017 9:38 AM
== END | disposition home or self-care (01) ==
LOC: C.MRI 08:11
PROVIDERS: ATTEND Psychiatry & Neurology Neurology
DX: D35.2 Benign neoplasm of pituitary gland (principal); E22.2 Syndrome of inappropriate secretion of antidiuretic hormone

== ENCOUNTER → 2017-05-29 | Outpatient (CLI) | payer BC ==
[~2017-05-29] MED LIST changes: -GADAVIST IV PRN
[2017-05-29 13:09] LABS: BASO % 0.3 %; BASO ABS # 0.02 K/uL (0-0.2); COMPLETE YES; EOS % 0.7 %; HEMATOCRIT 40.8 % (42-52); IG% 0.3 %; LYMPH % 29.6 %; LYMPH ABS # 2.14 K/uL (1.2-3.4); MEAN CELL VOLUME 85.4 fL (80-100); MEAN CORPUSCULAR HEMOGLOBIN 29.5 pg (25-34); MEAN CORPUSCULAR HGB CONC 34.6 g/dl (32-36); MEAN PLATELET VOLUME 9.5 fL (7.4-10.4); MONO % 8.7 %; NEUT % 60.4 %; PLATELET COUNT 259 K/uL (130-400); RED BLOOD COUNT 4.78 M/uL (4.7-6.1); WHITE BLOOD COUNT 7.24 K/uL (4.8-10.8)
[2017-05-29 13:35] LABS: BLOOD UREA NITROGEN 23 mg/dl (7-18); CALCIUM 8.7 mg/dl (8.5-10.1); CARBON DIOXIDE 27 mmol/L (21-32); CHLORIDE 96 mmol/L (98-107); CREATININE 1.01 mg/dl (0.60-1.40); GLUCOSE 136 mg/dl (70-99); POTASSIUM 4.2 mmol/L (3.5-5.1); SODIUM 127 mmol/L (136-145)
== END | disposition home or self-care (01) ==
LOC: C.LAB 12:32
PROVIDERS: ATTEND Internal Medicine
DX: E87.1 Hypo-osmolality and hyponatremia (principal); E53.8 Deficiency of other specified B group vitamins

== ENCOUNTER → 2017-06-14 | Outpatient (CLI) | payer BC ==
[~2017-06-14] MED LIST changes: +BISA1TAB15 PO; +ESCI1TAB10 PO; +ESCI1TAB6 PO; +HYDR-4715 PO; +LOSA1TAB PO; +POLY335019 PO
[2017-06-14 14:22] LABS: BLOOD UREA NITROGEN 24 mg/dl (7-18); CALCIUM 9.1 mg/dl (8.5-10.1); CARBON DIOXIDE 26 mmol/L (21-32); CREATININE 0.85 mg/dl (0.60-1.40); GLUCOSE 116 mg/dl (70-99); POTASSIUM 3.7 mmol/L (3.5-5.1); SODIUM 132 mmol/L (136-145)
== END | disposition home or self-care (01) ==
LOC: C.LAB 13:06
PROVIDERS: ATTEND Internal Medicine
DX: E87.1 Hypo-osmolality and hyponatremia (principal); T14.90XA Injury, unspecified, initial encounter; W57.XXXA Bitten or stung by nonvenomous insect and other nonvenomous arthropods, initial encounter

== ENCOUNTER → 2017-09-14 | Outpatient (CLI) | payer BC ==
[~2017-09-14] MED LIST changes: -BISA1TAB15 PO; -ESCI1TAB10 PO; -ESCI1TAB6 PO; -HYDR-4715 PO; -LOSA1TAB PO; -POLY335019 PO
[2017-09-14 08:14] LABS: BASO % 0.3 %; BASO ABS # 0.02 K/uL (0-0.2); EOS % 0.4 %; EOS ABS # 0.03 K/uL (0-0.5); HEMATOCRIT 42.2 % (42-52); IG# 0.02 K/uL (0.00-0.02); LYMPH % 33.8 %; LYMPH ABS # 2.39 K/uL (1.2-3.4); MEAN CELL VOLUME 83.6 fL (80-100); MEAN CORPUSCULAR HEMOGLOBIN 29.7 pg (25-34); MEAN CORPUSCULAR HGB CONC 35.5 g/dl (32-36); MONO % 9.1 %; MONO ABS # 0.64 K/uL (0.11-0.59); NEUT % 56.1 %; NEUT ABS # 3.97 K/uL (1.4-6.5); PLATELET COUNT 240 K/uL (130-400); RED CELL DISTRIBUTION WIDTH CV 15.9 % (11.5-14.5); RED CELL DISTRIBUTION WIDTH SD 48.6 fL (36.4-46.3); WHITE BLOOD COUNT 7.07 K/uL (4.8-10.8)
[2017-09-14 08:40] LABS: ALBUMIN 3.6 gm/dl (3.4-5.0); ALT/SGPT 22 U/L (12-78); BLOOD UREA NITROGEN 18 mg/dl (7-18); CALCIUM 9.1 mg/dl (8.5-10.1); CARBON DIOXIDE 27 mmol/L (21-32); CREATININE 0.87 mg/dl (0.60-1.40); GLUCOSE 94 mg/dl (70-99); POTASSIUM 4.3 mmol/L (3.5-5.1); SODIUM 131 mmol/L (136-145)
[2017-09-14 08:51] LABS: ALKALINE PHOSPHATASE 80 U/L (45-117); AST/SGOT 19 U/L (15-37); TOTAL PROTEIN 7.1 gm/dl (6.4-8.2)
== END | disposition home or self-care (01) ==
LOC: C.LAB 07:57
PROVIDERS: ATTEND Internal Medicine
DX: Z00.00 Encounter for general adult medical examination without abnormal findings (principal); R53.83 Other fatigue; E22.2 Syndrome of inappropriate secretion of antidiuretic hormone; R41.0 Disorientation, unspecified; E53.8 Deficiency of other specified B group vitamins

== ENCOUNTER → 2018-01-01 | Outpatient (CLI) | payer BC ==
[~2018-01-01] MED LIST changes: +BISA1TAB15 PO; +ESCI1TAB10 PO; +ESCI1TAB6 PO; +HYDR-4715 PO; -LISI-461 PO; +LOSA1TAB PO; -LXP/20 PO; +POLY335019 PO
[2018-01-01 15:52] LABS: BLOOD UREA NITROGEN 23 mg/dl (7-18); CALCIUM 8.6 mg/dl (8.5-10.1); CARBON DIOXIDE 26 mmol/L (21-32); CREATININE 0.89 mg/dl (0.60-1.40); GLUCOSE 91 mg/dl (70-99); POTASSIUM 4.3 mmol/L (3.5-5.1); SODIUM 132 mmol/L (136-145)
== END | disposition home or self-care (01) ==
LOC: C.LAB 14:46
PROVIDERS: ATTEND Physician Assistant Medical
DX: E22.2 Syndrome of inappropriate secretion of antidiuretic hormone (principal)